=== PATIENT | female | born 1990 | race Caucasian/White ===

== ENCOUNTER 2020-11-27 11:08 | Outpatient (CLI) | payer OTHER | END 2020-11-27 11:09 | disposition critical access hospital (66) | LOC: EMS 11:08 | PROVIDERS: ATTEND Emergency Medicine | DX: R11.0 Nausea (principal); R42 Dizziness and giddiness; R10.30 Lower abdominal pain, unspecified | CPT/HCPCS: A0425; A0429 ==

== ENCOUNTER 2020-11-27 11:23 | Emergency (ER) | payer BC, OTHER ==
[2020-11-27] MEDS ORDERED: ONDANSETRON 4 MG/2 ML VIAL IVP STA (12:09)
[2020-11-27] MEDS ORDERED: LIDOCAINE VISCOUS 2% 15 ML UDC MM STA (12:09)
[2020-11-27] MEDS ORDERED: SODIUM CHLORIDE 0.9% 1,000 ML IV STA (12:09)
[2020-11-27] MEDS ORDERED: MAG HYDROX/AL HYDROX/SIMETH 30 ML UDC PO STA (12:09)
--- NOTE | 2020-11-27 12:10 | ED Physician Documentation ---
PD HPI ABD PAIN - Stated complaint Stated Complaint: N/V - Chief complaint Chief Complaint: Abd Pain - History obtained from History obtained from: Patient - Additional information Additional information: 30-year-old woman with history of cholecystectomy had some alcoholic beverages last night. Awoke this morning feeling nauseous and vomiting and dry heaving thinking she was just hung over but around 8 AM developed left upper quadrant pain and feeling quite weak. There is also some diarrhea with this. No fevers but she did have chills. No blood from either end. No possibility of . Review of Systems Ten Systems: 10 systems reviewed and negative Constitutional: reports: Chills, Fatigue, Sweats Nose: denies: Rhinorrhea / runny nose Throat: denies: Sore throat Cardiac: denies: Chest pain / pressure, Palpitations PD PAST MEDICAL HISTORY - Present Medications Home Medications: Ambulatory Orders Medication Instructions Recorded Confirmed Famotidine [Pepcid] 20 mg PO BID #30 tablet 11/27/20 HYDROcod/ACETAM 5/325 [[place] 5/325] 1 - 2 tab PO Q6H PRN #7 tablet 11/27/20 Ondansetron Odt [Zofran] 4 mg TL Q6H PRN #10 tablet 11/27/20 - Allergies Allergies/Adverse Reactions: Allergies Allergy/AdvReac Type Severity Reaction Status Date / Time sumatriptan Allergy Unknown Verified 11/27/20 11:51 PD ED PE NORMAL - Vitals Vital signs reviewed: Yes - General General: Alert and oriented X 3, No acute distress - Neck Neck: Supple, no meningeal sign, No bony TTP - Cardiac Cardiac: RRR, No murmur - Respiratory Respiratory: No respiratory distress, Clear bilaterally - Abdomen Abdomen: Normal bowel sounds, Soft, Non tender - Back Back: No CVA TTP, No spinal TTP - Derm Derm: Normal color, Warm and dry - Neuro Neuro: Alert and oriented X 3, Normal speech Results - Vitals Vitals: Vital Signs - 24 hr 11/27/20 11/27/20 11:25 11:50 Temperature 36.6 C 36.6 C Heart Rate 87 69 Respiratory 16 17 Rate Blood Pressure 106/73 106/73 O2 Saturation 100 99 Oxygen O2 Source Room air - Labs Labs: Laboratory Tests 11/27/20 11/27/20 11:45 11:45 WBC 13.1 H RBC 4.95 Hgb 14.9 Hct 42.8 MCV 86.5 MCH 30.1 MCHC 34.8 RDW 12.2 Plt Count 301 MPV 9.0 Neut # (Auto) 11.3 H Lymph # (Auto) 1.3 L [place] # (Auto) 0.3 Eos # (Auto) 0.0 Baso # (Auto) 0.0 Absolute Nucleated RBC 0.00 Nucleated RBC % 0.0 Sodium 140 Potassium 3.7 Chloride 105 Carbon Dioxide 20 L Anion Gap 15.0 H BUN 14 Creatinine 0.7 Estimated GFR (MDRD) 98 Glucose 102 H Calcium 9.6 Total Bilirubin 0.8 AST 18 ALT 14 Alkaline Phosphatase 45 Total Protein 7.5 Albumin 4.4 Globulin 3.1 Albumin/Globulin Ratio 1.4 Lipase 19 L PD MEDICAL DECISION MAKING - ED course ED course: 30-year-old woman presents with nausea diarrhea and left upper quadrant pain after a night of drinking. Differential diagnosis includes pancreatitis, gastritis, at all. She was feeling much better after some Zofran and a GI cocktail I think clinching the diagnosis of gastritis. No biochemical evidence of pancreatitis. Departure - Departure Disposition: 01 Home, Self Care Clinical Impression: Gastritis Qualifiers: Gastritis type: alcoholic Chronicity: acute Gastritis bleeding: without bleeding Qualified Code(s): K29.20 - Alcoholic gastritis without bleeding Condition: Good Record reviewed to determine appropriate education?: Yes Instructions: ED Gastritis Prescriptions: HYDROcod/ACETAM 5/325 [[place] 5/325] 1 - 2 tab PO Q6H PRN #7 tablet PRN Reason: Pain Famotidine [Pepcid] 20 mg PO BID #30 tablet Ondansetron Odt [Zofran] 4 mg TL Q6H PRN #10 tablet PRN Reason: Nausea / Vomiting Comments: Return if symptoms worsen or change. If symptoms are persistent follow-up with your physician for discussion of referral for upper endoscopy, but as discussed I think this should be gone fairly quickly if you abstain from alcohol.
[2020-11-27 12:14] LABS: BASOPHILS % (AUTO) 0.3 %; EOSINOPHILS % (AUTO) 0.2 %; HCT - HEMATOCRIT 42.8 % (37.0-47.0); HGB - HEMOGLOBIN 14.9 g/dL (12.0-16.0); LYMPHOCYTES # (AUTO) 1.3 10^3/uL (1.5-3.5); LYMPHOCYTES % (AUTO) 10.2 %; MEAN CORPUSCULAR HEMOGLOBIN 30.1 pg (27.0-31.0); MEAN CORPUSCULAR HGB CONC 34.8 g/dL (32.0-36.0); MEAN CORPUSCULAR VOLUME 86.5 fL (81.0-99.0); MONOCYTES # (AUTO) 0.3 10^3/uL (0.0-1.0); MONOCYTES % (AUTO) 2.5 %; NEUTROPHILS # (AUTO) 11.3 10^3/uL (1.5-6.6); NEUTROPHILS % (AUTO) 86.5 %; PLT - PLATELET COUNT 301 10^3/uL (130-450); RED BLOOD COUNT 4.95 10^6/uL (4.20-5.40); RED CELL DISTRIBUTION WIDTH 12.2 % (12.0-15.0); WHITE BLOOD COUNT 13.1 x10^3/uL (4.8-10.8)
[2020-11-27 12:29] LABS: ALBUMIN 4.4 g/dL (3.2-5.5); ALBUMIN/GLOBULIN RATIO 1.4 (1.0-2.2); BILIRUBIN,TOTAL 0.8 mg/dL (0.2-1.0); CALCIUM 9.6 mg/dL (8.5-10.3); CREATININE 0.7 mg/dL (0.4-1.0); POTASSIUM 3.7 mmol/L (3.5-5.0); TOTAL PROTEIN 7.5 g/dL (6.7-8.2)
[2020-11-27] MEDS ORDERED: FAMOTIDINE 20 MG/2 ML VIAL IVP STA (12:50)
[2020-11-27 13:53] VITALS: BP 103/70
== END 2020-11-27 14:07 | disposition home or self-care (01) ==
LOC: EDUNIT# → ED 11:23
DX: K29.20 Alcoholic gastritis without bleeding (principal)
CPT/HCPCS: 36415; 80053; 83690; 85025; 96374; 96375; 99284; A9270

== ENCOUNTER 2020-12-07 09:51 | Emergency (ER) | payer OTHER ==
[2020-12-07] MEDS ORDERED: SODIUM CHLORIDE 0.9% 1,000 ML IV STA (10:19)
[2020-12-07] MEDS ORDERED: MAG HYDROX/AL HYDROX/SIMETH 30 ML UDC PO STA (10:19)
[2020-12-07] MEDS ORDERED: LIDOCAINE VISCOUS 2% 15 ML UDC MM STA (10:19)
--- NOTE | 2020-12-07 10:21 | ED Physician Documentation ---
PD HPI ABD PAIN - Stated complaint Stated Complaint: FEMALE - Chief complaint Chief Complaint: Abd Pain - History obtained from History obtained from: Patient - Additional information Additional information: Seen by me about 10 days ago for epigastric pain after a night of drinking. She did better with a GI cocktail and the work-up was negative. Subsequently had more pain and was seen a few days at urgent care. PPI was stopped and she was started on sucralfate. She did not feel like that was helpful and developed constipation with that. Subsequently had some firm bowel movements which were coated in quite a bit of blood. Then went a few days without a bowel movement. Then last night had a pasty bowel movements again bloody. She develops epigastric pain after eating or drinking. It radiates down and gets a shocklike pain in the suprapubic area right before having a bowel movement. She does have hemorrhoids and those are mildly painful. No more alcohol since that first day and is not on any NSAIDs. Review of Systems Ten Systems: 10 systems reviewed and negative Constitutional: reports: Fatigue Cardiac: denies: Chest pain / pressure, Palpitations Respiratory: denies: Dyspnea, Cough PD PAST MEDICAL HISTORY - Present Medications Home Medications: Ambulatory Orders Medication Instructions Recorded Confirmed Famotidine [Pepcid] 20 mg PO BID #30 tablet 11/27/20 HYDROcod/ACETAM 5/325 [[place] 5/325] 1 - 2 tab PO Q6H PRN #7 tablet 11/27/20 Ondansetron Odt [Zofran] 4 mg TL Q6H PRN #10 tablet 11/27/20 HYDROcod/ACETAM 5/325 [[place] 5/325] 1 - 2 tab PO Q6H PRN #15 tablet 12/07/20 - Allergies Allergies/Adverse Reactions: Allergies Allergy/AdvReac Type Severity Reaction Status Date / Time sumatriptan Allergy Unknown Verified 11/27/20 11:51 PD ED PE NORMAL - Vitals Vital signs reviewed: Yes - General General: Alert and oriented X 3, No acute distress - HEENT HEENT: PERRL, EOMI - Neck Neck: Supple, no meningeal sign, No bony TTP - Cardiac Cardiac: RRR, No murmur - Respiratory Respiratory: No respiratory distress, Clear bilaterally - Abdomen Abdomen: Normal bowel sounds, Soft, Non tender - Rectal Rectal: Other (Some small hemorrhoids without sequela of recent active bleeding. There is some blood in the vault, no appreciable stool. Done torrey Stout RN) - Back Back: No CVA TTP, No spinal TTP - Derm Derm: Normal color, Warm and dry - Extremities Extremities: No edema, No calf tenderness / cord - Neuro Neuro: Alert and oriented X 3, Normal speech Results - Vitals Vitals: Vital Signs - 24 hr 12/07/20 12/07/20 12/07/20 09:56 10:23 10:32 Temperature 36.6 C 36.7 C Heart Rate 64 65 58 L Respiratory 18 18 16 Rate Blood Pressure 112/74 114/74 103/67 O2 Saturation 99 100 100 12/07/20 12/07/20 11:20 12:03 Temperature 36.7 C Heart Rate 68 67 Respiratory 16 18 Rate Blood Pressure 113/75 99/65 O2 Saturation 100 100 Oxygen O2 Source Room air - Labs Labs: Laboratory Tests 12/07/20 12/07/20 12/07/20 10:00 10:20 10:20 WBC 6.1 RBC 4.71 Hgb 14.3 Hct 43.0 MCV 91.3 MCH 30.4 MCHC 33.3 RDW 12.4 Plt Count 238 MPV 9.2 Neut # (Auto) 3.2 Lymph # (Auto) 2.3 [place] # (Auto) 0.4 Eos # (Auto) 0.1 Baso # (Auto) 0.0 Absolute Nucleated RBC 0.00 Nucleated RBC % 0.0 Sodium 138 Potassium 3.7 Chloride 101 Carbon Dioxide 27 Anion Gap 10.0 BUN 13 Creatinine 0.7 Estimated GFR (MDRD) 98 Glucose 93 Calcium 9.3 Total Bilirubin 0.8 AST 19 ALT 18 Alkaline Phosphatase 42 Total Protein 7.5 Albumin 4.3 Globulin 3.2 Albumin/Globulin Ratio 1.3 Lipase 21 L Urine Color YELLOW Urine Clarity CLEAR Urine pH 6.5 Ur Specific [place] 1.025 Urine Protein NEGATIVE Urine Glucose (UA) NEGATIVE Urine Ketones NEGATIVE Urine Occult Blood NEGATIVE Urine Nitrite NEGATIVE Urine Bilirubin NEGATIVE Urine Urobilinogen 1 (NORMAL) Ur Leukocyte Esterase NEGATIVE Ur Microscopic Review NOT INDICATED Urine Culture Comments NOT INDICATED Urine HCG, Qual NEGATIVE Blood Type Blood Type Recheck Antibody Screen 12/07/20 12/07/20 10:20 10:20 WBC RBC Hgb Hct MCV MCH MCHC RDW Plt Count MPV Neut # (Auto) Lymph # (Auto) [place] # (Auto) Eos # (Auto) Baso # (Auto) Absolute Nucleated RBC Nucleated RBC % Sodium Potassium Chloride Carbon Dioxide Anion Gap BUN Creatinine Estimated GFR (MDRD) Glucose Calcium Total Bilirubin AST ALT Alkaline Phosphatase Total Protein Albumin Globulin Albumin/Globulin Ratio Lipase Urine Color Urine Clarity Urine pH Ur Specific [place] Urine Protein Urine Glucose (UA) Urine Ketones Urine Occult Blood Urine Nitrite Urine Bilirubin Urine Urobilinogen Ur Leukocyte Esterase Ur Microscopic Review Urine Culture Comments Urine HCG, Qual Blood Type O POSITIVE Blood Type Recheck O POSITIVE Antibody Screen NEGATIVE PD MEDICAL DECISION MAKING - ED course ED course: 30-year-old woman presents with abdominal and pelvic pain associated with hematochezia. CT imaging was negative except for right ovarian cyst. Blood work is basically unchanged without a significant H&H drop since her last visit. Discussed need for follow-up especially if symptoms are persistent for consideration of upper and lower endoscopy. Departure - Departure Disposition: Home, Self Care Clinical Impression: Hematochezia Abdominal pain Qualifiers: Abdominal location: generalized Qualified Code(s): R10.84 - Generalized abdominal pain Condition: Good Record reviewed to determine appropriate education?: Yes Instructions: ED Hematochezia Stable Follow-Up: Vicente Palma MD [Provider Admit Priv/Credential] - Prescriptions: HYDROcod/ACETAM 5/325 [[place] 5/325] 1 - 2 tab PO Q6H PRN #15 tablet PRN Reason: Pain Comments: Restart the omeprazole. You can take the pain medicine when it is bad. Tylenol when it is mild. Return for new or worsening symptoms. Otherwise follow-up with the surgeon for consideration for upper and/or lower endoscopies if symptoms are persistent. Discharge Date/Time: 12/07/20 12:18
[2020-12-07 10:28] LABS: BILIRUBIN,URINE NEGATIVE (NEGATIVE); GLUCOSE, URINE (UA) NEGATIVE (NEGATIVE); KETONES,URINE (UA) NEGATIVE (NEGATIVE); LEUKOCYTE ESTERASE, URINE NEGATIVE (NEGATIVE); NITRITE,URINE NEGATIVE (NEGATIVE); OCCULT BLOOD,URINE NEGATIVE (NEGATIVE); PH,URINE 6.5 PH (5.0-7.5); PROTEIN,URINE NEGATIVE (NEGATIVE); UROBILINOGEN,URINE 1 (NORMAL) E.U./dL (NORMAL)
[2020-12-07 10:31] LABS: CLARITY,URINE CLEAR (CLEAR); HCG UR QUAL NEGATIVE
[2020-12-07 10:34] LABS: BASOPHILS % (AUTO) 0.5 %; EOSINOPHILS # (AUTO) 0.1 10^3/uL (0.0-0.7); EOSINOPHILS % (AUTO) 1.8 %; HGB - HEMOGLOBIN 14.3 g/dL (12.0-16.0); LYMPHOCYTES # (AUTO) 2.3 10^3/uL (1.5-3.5); LYMPHOCYTES % (AUTO) 38.4 %; MEAN CORPUSCULAR HEMOGLOBIN 30.4 pg (27.0-31.0); MEAN CORPUSCULAR HGB CONC 33.3 g/dL (32.0-36.0); MEAN CORPUSCULAR VOLUME 91.3 fL (81.0-99.0); MEAN PLATELET VOLUME 9.2 fL (7.9-10.8); MONOCYTES # (AUTO) 0.4 10^3/uL (0.0-1.0); MONOCYTES % (AUTO) 6.7 %; NEUTROPHILS # (AUTO) 3.2 10^3/uL (1.5-6.6); NEUTROPHILS % (AUTO) 52.3 %; PLT - PLATELET COUNT 238 10^3/uL (130-450); RED BLOOD COUNT 4.71 10^6/uL (4.20-5.40); RED CELL DISTRIBUTION WIDTH 12.4 % (12.0-15.0); WHITE BLOOD COUNT 6.1 x10^3/uL (4.8-10.8)
[2020-12-07] MEDS ORDERED: IOVERSOL 320 100 ML VIAL IVP ONE ×2 (10:35→12:19)
[2020-12-07 10:46] LABS: ALBUMIN 4.3 g/dL (3.2-5.5); ALBUMIN/GLOBULIN RATIO 1.3 (1.0-2.2); BILIRUBIN,TOTAL 0.8 mg/dL (0.2-1.0); CALCIUM 9.3 mg/dL (8.5-10.3); CREATININE 0.7 mg/dL (0.4-1.0); POTASSIUM 3.7 mmol/L (3.5-5.0); TOTAL PROTEIN 7.5 g/dL (6.7-8.2)
--- NOTE | 2020-12-07 11:47 | CT Report ---
PROCEDURE: Abdomen/Pelvis W INDICATIONS: IV only, abd pain CONTRAST: IV CONTRAST: Optiray 320 ml: 100 PO CONTRAST: *NO PO CONTRAST TECHNIQUE: After the administration of IV contrast, 5 mm thick sections acquired from the diaphragms to the symp hysis. 5 mm thick coronal and sagittal reformats were acquired. For radiation dose reduction, the f ollowing was used: automated exposure control, adjustment of mA and/or kV according to patient size. COMPARISON: None. FINDINGS: Image quality: Excellent. ABDOMEN: Lung bases: Lung bases are clear. Heart size is normal. Solid organs: Liver is prominent with mild steatosis. The spleen is normal in size and enhancement. Gallbladder has been removed Biliary system is non dilated. Pancreas enhances normally. No adrena l nodules. Kidneys demonstrate normal size and enhancement, without hydronephrosis. Peritoneum and bowel: Bowel loops demonstrate normal wall thickness and caliber. No free fluid or a ir. Colonic stool. Gastric bypass changes are noted. Nodes and vessels: No retroperitoneal or mesenteric adenopathy by size criteria. Aorta and inferior vena cava are normal in size. Miscellaneous: No ventral hernias. PELVIS: Genitourinary: Bladder wall thickness is normal. Right ovarian cyst is present measuring 23 mm. Miscellaneous: No inguinal hernias or adenopathy. Bones: No suspicious bony lesions. No vertebral body compression fractures. IMPRESSION: 1. No visualized bowel obstruction. 2. Right ovarian cyst. Reviewed by: Yolanda Steen MD on 12/07/2020 11:45 AM PDT Approved by: Yolanda Steen MD on 12/07/2020 11:45 AM PDT Station ID: [id number]
[2020-12-07 12:04] VITALS: BP 99/65
== END 2020-12-07 12:18 | disposition home or self-care (01) ==
LOC: ED 09:51
DX: K92.1 Melena (principal); N83.201 Unspecified ovarian cyst, right side
CPT/HCPCS: 36415; 74177; 80053; 81003; 81025; 83690; 85025; 86850; 86900; 86901; 99284; A9270; Q9967; 81001; 87086

== ENCOUNTER 2021-07-28 08:00 | Outpatient (CLI) | payer OTHER ==
[2021-07-28 12:06] LABS: HCT - HEMATOCRIT 41.9 % (37.0-47.0); HGB - HEMOGLOBIN 13.7 g/dL (12.0-16.0); MEAN CORPUSCULAR HEMOGLOBIN 29.9 pg (27.0-31.0); MEAN CORPUSCULAR HGB CONC 32.7 g/dL (32.0-36.0); MEAN CORPUSCULAR VOLUME 91.5 fL (81.0-99.0); MEAN PLATELET VOLUME 9.3 fL (7.9-10.8); RED BLOOD COUNT 4.58 10^6/uL (4.20-5.40); RED CELL DISTRIBUTION WIDTH 12.2 % (12.0-15.0); WHITE BLOOD COUNT 5.9 x10^3/uL (4.8-10.8)
[2021-07-28 16:22] LABS: RHEUMATOID FACTOR NEGATIVE (Negative)
[2021-07-30 11:41] LABS: ANA SCREEN NEGATIVE (NEGATIVE)
== END 2021-07-28 23:59 | disposition home or self-care (01) ==
LOC: LAB.WCP 08:00
PROVIDERS: ATTEND Physician Assistant Medical
DX: M25.50 Pain in unspecified joint (principal)
CPT/HCPCS: 36415; 85027; 85651; 86038; 86140; 86225; 86430

== ENCOUNTER 2021-07-29 15:51 | Outpatient (CLI) | payer OTHER ==
--- NOTE | 2021-07-29 22:28 | XRAY Report ---
PROCEDURE: Hips 3-4V BILAT INDICATIONS: BILATERAL HIP PAIN TECHNIQUE: Single view the pelvis and additional view of each hip was obtained COMPARISON: None FINDINGS: Bones: No fractures or dislocations. No suspicious bony lesions. The visualized pelvic ring appear s intact. Soft tissues: No suspicious soft tissue calcifications or masses. IMPRESSION: Normal bilateral hip radiographs Reviewed by: Isacc Reaves MD on 07/29/2021 9:27 PM AKDT Approved by: Isacc Reaves MD on 07/29/2021 9:27 PM AKDT Station ID: [id number]
--- NOTE | 2021-07-29 22:42 | XRAY Report ---
PROCEDURE: Knee 3 View BILAT INDICATIONS: CHRONIC KNEE PAIN TECHNIQUE: 3 views of the bilateral knee(s) were acquired. COMPARISON: None. FINDINGS: Bones: No fractures or dislocations. No suspicious bony lesions. Mild medial compartment joint spac e narrowing noted. Normal bone mineralization present. Soft tissues: No joint effusion. No suspicious soft tissue calcifications. IMPRESSION: Mild bilateral medial compartment joint space narrowing Reviewed by: Isacc Reaves MD on 07/29/2021 9:41 PM [email or web address] Approved by: Isacc Reaves MD on 07/29/2021 9:41 PM AKDT Station ID: [id number]
== END 2021-07-29 15:52 | disposition home or self-care (01) ==
LOC: DI.N 15:51
PROVIDERS: ATTEND Physician Assistant Medical
DX: M25.551 Pain in right hip (principal); M17.0 Bilateral primary osteoarthritis of knee

== ENCOUNTER 2021-10-24 06:54 | Emergency (ER) | payer OTHER ==
--- NOTE | 2021-10-24 07:37 | ED Physician Documentation ---
History of Present Illness - Stated complaint Stated Complaint: CHEST PAIN - Chief complaint Chief Complaint: Cardiac - History obtained from History obtained from: Patient - Additonal information Additional information: And comes to the emergency department with chief complaint of episodes of heart racing. Patient states that she feels that most often when she stands up and that she sometimes gets a sense of slight chest discomfort and nausea. She states that the episodes will last until she sits down. Patient states she has a Fitbit and the highest heart rate she is recorded is 125, but usually, the heart rate is 115 or less. Patient states that she starts to feel the discomfort when her heart rate gets above 90. No other complaints at this time. She states she is otherwise healthy. She has not had any vomiting or diarrhea. No fevers or chills. No shortness of breath. No swelling in her legs. The patient has no known history of diabetes, hypertension, or rhythm abnormalities. No thyroid disorders. The patient states the episodes have been going on on and off for the last 3 days, though she has had occasional episodes before, Which prompted her to ask her doctor 2 weeks ago to refer her to cardiology. The patient states that she is scheduled to see cardiology and have an event monitor placed. She is asymptomatic at this moment. Review of Systems Ten Systems: 10 systems reviewed and negative Constitutional: reports: Reviewed and negative Eyes: reports: Reviewed and negative Ears: reports: Reviewed and negative Nose: reports: Reviewed and negative Throat: reports: Reviewed and negative Cardiac: reports: Chest pain / pressure, Palpitations Respiratory: reports: Reviewed and negative GI: reports: Reviewed and negative : reports: Reviewed and negative Skin: reports: Reviewed and negative Musculoskeletal: reports: Reviewed and negative Neurologic: reports: Reviewed and negative Psychiatric: reports: Reviewed and negative Endocrine: reports: Reviewed and negative Immunocompromised: reports: Reviewed and negative PD PAST MEDICAL HISTORY - Past Surgical History Past Surgical History: Yes General: Cholecystectomy - Present Medications Home Medications: Ambulatory Orders Medication Instructions Recorded Confirmed No Known Home Medications 10/24/21 10/24/21 - Allergies Allergies/Adverse Reactions: Allergies Allergy/AdvReac Type Severity Reaction Status Date / Time sumatriptan Allergy Unknown Verified 10/24/21 07:20 - Social History Does the pt smoke?: Yes Smoking Status: Current every day smoker Does the pt drink ETOH?: Yes Does the pt have substance abuse?: Yes - Immunizations Immunizations are current?: Yes - POLST Patient has POLST: No PD ED PE NORMAL - Vitals Vital signs reviewed: Yes - General General: Alert and oriented X 3, No acute distress, Well developed/nourished - HEENT HEENT: Atraumatic, PERRL, EOMI, Moist mucous membranes - Cardiac Cardiac: RRR, No murmur, Strong equal pulses - Respiratory Respiratory: No respiratory distress, Clear bilaterally - Abdomen Abdomen: Soft, Non tender, Non distended - Derm Derm: Normal color, Warm and dry, No rash - Extremities Extremities: No deformity, No edema, No calf tenderness / cord - Neuro Neuro: Alert and oriented X 3, hog raiser 2-12 intact, Normal speech, Other (Grossly intact) - Psych Psych: Normal mood, Normal affect Results - Vitals Vitals: Vital Signs - 24 hr 10/24/21 10/24/21 10/24/21 07:00 07:30 08:00 Temperature 36.8 C Heart Rate 60 63 62 Respiratory 10 L 10 L 12 Rate Blood Pressure 109/74 104/67 111/68 O2 Saturation 100 100 100 10/24/21 08:30 Temperature Heart Rate 64 Respiratory 12 Rate Blood Pressure 109/66 O2 Saturation 100 Oxygen O2 Source Room air - EKG (time done) 0708 Rate: Rate (enter#) (68) Rhythm: NSR [place]: Normal Intervals: Normal MT QRS: Normal Ischemia: Normal ST segments. No: T wave inversion Compare to prior EKG: Old EKG unavailable Computer interpretation: Agree with computer - Labs Labs: Laboratory Tests 10/24/21 10/24/21 10/24/21 07:40 07:40 07:40 WBC 5.2 RBC 4.37 Hgb 13.2 Hct 38.4 MCV 87.9 MCH 30.2 MCHC 34.4 RDW 12.0 Plt Count 211 MPV 8.8 Neut # (Auto) 2.7 Lymph # (Auto) 2.1 [place] # (Auto) 0.3 Eos # (Auto) 0.1 Baso # (Auto) 0.0 Absolute Nucleated RBC 0.00 Nucleated RBC % 0.0 Sodium 137 Potassium 3.9 Chloride 103 Carbon Dioxide 24 Anion Gap 10.0 BUN 16 Creatinine 0.7 Estimated GFR (MDRD) 98 Glucose 97 Calcium 8.9 Total Bilirubin 1.1 H AST 25 ALT 26 Alkaline Phosphatase 36 L Total Protein 6.8 Albumin 3.9 Globulin 2.9 Albumin/Globulin Ratio 1.3 Lipase 21 L TSH 0.68 PD MEDICAL DECISION MAKING - ED course Complexity details: reviewed results, re-evaluated patient, considered differential, d/w patient ED course: The patient was well-appearing in the emergency department, with a normal sinus rhythm on the monitor and a normal blood pressure. Her EKG was completely normal. She was also worked up with laboratory studies and given a liter of IV fluid. The patient's laboratory studies were unremarkable. She did not have any episodes of tachycardia in the emergency department, and given all of this, I felt she was stable for discharge home. The patient has follow-up set up with cardiology and also has a primary care physician with whom she is well established. We have discussed the usual indications for return. Departure - Departure Disposition: 01 Home, Self Care Clinical Impression: Palpitations with regular cardiac rhythm Condition: Stable Instructions: ED Chest Pain Atypical Unkn Cause, ED Palpitations Comments: All of your labs look great today. You have no electrolyte abnormalities, and your thyroid function is normal. You are not anemic. It is not clear exactly what has caused you to have the episodes of heart racing. Sometimes this can be an electrical problem with your heart, meaning that There is some intermittent dysfunction of some of the nerve roots of the heart itself that control heart rate and rhythm. Sometimes episodes of heart racing can be related to anxiety or panic attacks. The use of stimulants such as caffeine, energy drinks, or decongestants can also cause you to have episodes of heart racing. At this point in time, it is important that you follow-up with your primary care physician and with cardiology, as you are planning to do. If you develop a heart rate that does not go down, despite resting, then you should seek medical reevaluation. Also, if you develop severe chest pain and shortness of breath, you should be reevaluated immediately.
[2021-10-24] MEDS: SODIUM CHLORIDE 0.9% 1,000 ML IV STA (07:47)
[2021-10-24 07:56] LABS: BASOPHILS % (AUTO) 0.4 %; EOSINOPHILS # (AUTO) 0.1 10^3/uL (0.0-0.7); EOSINOPHILS % (AUTO) 1.5 %; HCT - HEMATOCRIT 38.4 % (37.0-47.0); HGB - HEMOGLOBIN 13.2 g/dL (12.0-16.0); LYMPHOCYTES # (AUTO) 2.1 10^3/uL (1.5-3.5); LYMPHOCYTES % (AUTO) 40.1 %; MEAN CORPUSCULAR HEMOGLOBIN 30.2 pg (27.0-31.0); MEAN CORPUSCULAR HGB CONC 34.4 g/dL (32.0-36.0); MEAN CORPUSCULAR VOLUME 87.9 fL (81.0-99.0); MEAN PLATELET VOLUME 8.8 fL (7.9-10.8); MONOCYTES # (AUTO) 0.3 10^3/uL (0.0-1.0); MONOCYTES % (AUTO) 6.4 %; NEUTROPHILS # (AUTO) 2.7 10^3/uL (1.5-6.6); NEUTROPHILS % (AUTO) 51.4 %; PLT - PLATELET COUNT 211 10^3/uL (130-450); RED BLOOD COUNT 4.37 10^6/uL (4.20-5.40); WHITE BLOOD COUNT 5.2 x10^3/uL (4.8-10.8)
[2021-10-24 08:14] LABS: ALBUMIN 3.9 g/dL (3.2-5.5); ALBUMIN/GLOBULIN RATIO 1.3 (1.0-2.2); BILIRUBIN,TOTAL 1.1 mg/dL (0.2-1.0); CALCIUM 8.9 mg/dL (8.5-10.3); CREATININE 0.7 mg/dL (0.4-1.0); POTASSIUM 3.9 mmol/L (3.5-5.0); TOTAL PROTEIN 6.8 g/dL (6.7-8.2)
[2021-10-24 08:32] VITALS: BP 109/66
== END 2021-10-24 08:48 | disposition home or self-care (01) ==
LOC: ED 06:54
DX: R00.2 Palpitations (principal); R07.89 Other chest pain; F17.200 Nicotine dependence, unspecified, uncomplicated
CPT/HCPCS: 36415; 80053; 83690; 84443; 85025; 93005; 99283; 99284

== ENCOUNTER 2022-02-15 18:46 | Outpatient (CLI) | payer OTHER | END 2022-02-15 18:47 | disposition critical access hospital (66) | LOC: EMS 18:46 | DX: R51.9 Headache, unspecified (principal); R42 Dizziness and giddiness; R11.2 Nausea with vomiting, unspecified | CPT/HCPCS: A0425; A0427 ==

== ENCOUNTER 2022-02-15 19:01 | Emergency (ER) | payer OTHER ==
[2022-02-15] MEDS ORDERED: SODIUM CHLORIDE 0.9% 1,000 ML IV STA (19:10)
[2022-02-15] MEDS ORDERED: PROCHLORPERAZINE 10 MG/2 ML VIAL IVP STA (19:11)
[2022-02-15] MEDS ORDERED: KETOROLAC 15 MG/ML VIAL IVP STA (19:11)
--- NOTE | 2022-02-15 19:17 | ED Physician Documentation ---
PD HPI HEADACHE - Stated complaint Stated Complaint: HEADACHE/DIZZY - Chief complaint Chief Complaint: Neuro - History obtained from History obtained from: Patient, EMS - Additional information Additional information: 31yo female with hx Insomnia and depression. Took trazodone for only the second time last night to help her sleep. The last time was about a month and a half ago. She woke at 5 AM with sudden onset headache. The headache is migratory. If she rolls over on her right side, the headache is on the right. Conversely if she rolls over on the left side the headache is on the left. She has a history of migraines, but those are usually behind the left eye and this is different. She is light sensitive. She has been nauseous but received Zofran in route per EMS which improved that. She tried some Tylenol earlier in the day which was ineffective. No other therapeutics. No neck stiffness or fevers. Review of Systems Constitutional: denies: Fever, Chills PD PAST MEDICAL HISTORY - Past Medical History Past Medical History: Yes Neuro: Migraines Psych: Anxiety - Past Surgical History Past Surgical History: Yes General: Cholecystectomy - Present Medications Home Medications: Ambulatory Orders Medication Instructions Recorded Confirmed PARoxetine HCl [Paxil] 30 mg PO DAILY 02/15/22 02/15/22 Propranolol [Inderal] 20 mg PO BID 02/15/22 02/15/22 traZODone [Desyrel] 50 mg PO PRN PRN 02/15/22 02/15/22 - Allergies Allergies/Adverse Reactions: Allergies Allergy/AdvReac Type Severity Reaction Status Date / Time sumatriptan Allergy Intermediate Unknown Verified 02/15/22 19:40 - Social History Does the pt smoke?: Yes Smoking Status: Current every day smoker Does the pt drink ETOH?: Yes Does the pt have substance abuse?: Yes - Immunizations Immunizations are current?: Yes - POLST Patient has POLST: No PD ED PE NORMAL - Vitals Vital signs reviewed: Yes - General General: Alert and oriented X 3, No acute distress - HEENT HEENT: PERRL, EOMI - Neck Neck: Supple, no meningeal sign, No bony TTP - Neuro Neuro: Alert and oriented X 3, veterinary assistant 2-12 intact, No motor deficit, No sensory deficit, Normal speech Eye Opening: Spontaneous Motor: Obeys Commands Verbal: Oriented GCS Score: 15 - Psych Psych: Normal mood, Normal affect Results - Vitals Vitals: Vital Signs - 24 hr 02/15/22 02/15/22 19:06 20:07 Temperature 37.2 C Heart Rate 77 92 Respiratory 18 18 Rate Blood Pressure 114/74 112/75 O2 Saturation 97 97 Oxygen O2 Source Room air PD MEDICAL DECISION MAKING - ED course ED course: 31-year-old woman with significant headache awaking her from sleep. She thinks it may be related to trazodone as she only took the second dose of her last n ight before going to bed. After the administration of Toradol and Compazine her headache was significantly improved, only a 3 and she was comfortable and requesting discharge. Departure - Departure Disposition: 01 Home, Self Care Clinical Impression: Headache Qualifiers: Headache type: unspecified Headache chronicity pattern: acute headache Intractability: not intractable Qualified Code(s): R51.9 - Headache, unspecified Condition: Good Record reviewed to determine appropriate education?: Yes Instructions: ED Cephalgia Unspecified Comments: Return if you worsen, talk with your doctor, next available appointment, call tomorrow. I would not take trazodone again until you discuss with them. I am not convinced that the trazodone caused the headache, but given the timing it does seem suspicious. Discharge Date/Time: 02/15/22 20:14
--- NOTE | 2022-02-15 19:55 | CT Report ---
PROCEDURE: HEAD WO INDICATIONS: whol TECHNIQUE: Noncontrast 4.5 mm thick angled axial sections acquired from the foramen magnum to the vertex. For r adiation dose reduction, the following was used: automated exposure control, adjustment of mA and/or kV according to patient size. COMPARISON: None. FINDINGS: Image quality: Excellent. CSF spaces: Basal cisterns are patent. No extra-axial fluid collections. Ventricles are normal in size and shape. Brain: No midline shift. No intracranial masses or hemorrhage. [place]par[place]-white matter interface is norm al. Skull and face: Calvarium and visualized facial bones are intact, without suspicious lesions. Sinuses: Visualized sinuses and mastoids are clear. IMPRESSION: 1. No acute intracranial process. Reviewed by: Yolanda Steen MD on 02/15/2022 7:54 PM PDT Approved by: Yolanda Steen MD on 02/15/2022 7:54 PM PDT Station ID: [id number]
[2022-02-15 20:12] VITALS: BP 112/75
== END 2022-02-15 20:14 | disposition home or self-care (01) ==
LOC: EDSEX → EDUNIT# → ED 19:01
DX: R51.9 Headache, unspecified (principal); F17.200 Nicotine dependence, unspecified, uncomplicated
CPT/HCPCS: 96374; 96375; 99282

== ENCOUNTER 2024-10-14 13:16 | Observation (INO) ==
--- NOTE | 2024-10-14 14:00 | ED Physician Documentation ---
History of Present Illness Stated complaint Stated Complaint: STOMACH/BACK PX Chief complaint Chief Complaint: Abd Pain History obtained from History obtained from: Patient History of Present Illness Timing: Prior to arrival Additonal information Additional information: Patient is A 34-year-old female who was seen here yesterday for similar symptoms of upper abdominal pain radiating to her flank. She notes multiple episodes of nausea and vomiting. Patient at the time was found to have mild pancreatitis and was given [place] and nausea medications. Patient felt these did not help her pain last dose of [place] was around 1 AM last night. She notes a hot and cold flashes with her symptoms with persistent nausea symptoms but no persistent emesis. She has been unable to eat and drink and is holding her side in pain due to persistent symptoms. She has a history of choleycystectomy about 4 years ago and notes similar symptoms at this time as then when she had cholecystitis. Meds/Allgy Home Medications Ambulatory Orders Medication Instructions Recorded Confirmed propranolol 10 mg tablet 20 mg PO BID 02/15/22 10/14/24 trazodone 50 mg tablet 50 mg PO PRN PRN Pain 02/15/22 10/14/24 acetaminophen 500 mg capsule 500 mg PO Q4H PRN fever or pain 10/13/24 10/14/24 ondansetron 4 mg disintegrating 4 mg PO Q8H PRN nausea and 10/13/24 10/14/24 tablet vomiting #30 tabs oxycodone-acetaminophen 5 mg-325 1 tab PO TID PRN pain #10 tabs 10/13/24 10/14/24 mg tablet Allergies Allergies Allergy/AdvReac Type Severity Reaction Status Date / Time sumatriptan Allergy Intermediate Unknown Verified 10/14/24 13:28 [facility] Social History Social History Smoking Status: Current every day smoker Do you vape?: No Relationship: Do you feel safe in your home environment?: Yes Suffered physical, verbal, emotional, or financial abuse?: No History of Abuse: No Frequency: Occasional Are you sexually active?: No POLST Patient has POLST: No Exam Constitutional normal general appearance HENMT normocephalic and head/scalp atraumatic Eyes PERRL and EOMs intact bilaterally Neck/C-Spine visual inspection normal Lymph no lymphadenopathy noted Chest inspection of chest normal Respiratory breath sounds equal bilaterally, normal respiratory effort and clear to auscultation bilaterally Cardiovascular normal heart rate noted Gastrointestinal Reproducible epigastric tenderness and right flank tenderness on examination. No generalized guarding appreciated and abdomen is soft on palpation mild distention appreciated but no palpable mass or ascites appreciated. Genitourinary Right flank tenderness on exam Back/Pelvis spine normal to inspection Extremities normal to inspection Skin skin color normal Results Vitals Vitals: Vital Signs - 24 hr 10/13/24 23:58 10/14/24 13:28 10/14/24 14:22 Temperature 36.0 C L Temperature Source Temporal Artery Scan Pulse Rate 80 Respiratory Rate 20 Blood Pressure 130/80 O2 Saturation 98 O2 Source Room air Room air Pain Intensity 0 8 8 10/14/24 15:00 10/14/24 15:21 Temperature Temperature Source Pulse Rate Respiratory Rate Blood Pressure O2 Saturation O2 Source Pain Intensity 8 8 Oxygen O2 Source Room air Labs Labs: Laboratory Tests 10/14/24 10/14/24 14:00 14:10 WBC 18.3 H RBC 5.03 Hgb 13.9 Hct 42.3 MCV 84.1 MCH 27.6 MCHC 32.9 RDW 13.0 Plt Count 330 MPV 9.1 Neut # (Auto) 14.9 H Lymph # (Auto) 1.9 [place] # (Auto) 1.2 H Eos # (Auto) 0.2 Baso # (Auto) 0.0 Absolute Nucleated RBC 0.00 Nucleated RBC % 0.0 Sodium 135 Potassium 3.6 Chloride 102 Carbon Dioxide 23 Anion Gap 10.0 BUN 17 Creatinine 0.8 Estimated GFR (MDRD) 82 L Glucose 116 H Calcium 9.9 Total Bilirubin 0.6 AST 12 ALT 11 Alkaline Phosphatase 62 Total Protein 8.2 Albumin 4.7 Globulin 3.5 Albumin/Globulin Ratio 1.3 Triglycerides 71 Lipase 76 Urine Color BROWN Urine Clarity CLOUDY Urine pH 6.0 Ur Specific [place] >=1.030 H Urine Protein 100 H Urine Glucose (UA) NEGATIVE Urine Ketones >=80 H Urine Occult Blood LARGE H Urine Nitrite NEGATIVE Urine Bilirubin MODERATE H Urine Urobilinogen 1 (NORMAL) Ur Leukocyte Esterase NEGATIVE Urine RBC TNTC H Urine WBC 6-10 H Ur Squamous Epith Cells FEW Squamous Urine Bacteria Few Ur Microscopic Review INDICATED Urine Culture Comments NOT INDICATED PD Medical Decision Making ED course Complexity details: reviewed old records and reviewed results ED course: Patient 34-year-old female presenting here to the emergency department after being seen yesterday and being diagnosed with mild pancreatitis. She was told if her pain was uncontrolled or she has persistent symptoms she needs to return to the emergency department.Patient symptoms worsened over the night no relief with 1 dose of Percocet and 2 doses of Tylenol she has been trying Zofran as well with no relief. She has not been able to eat or drink due to persistent symptoms. She had a history of mild pancreatitis about 4 years ago when she had a history of cholecystitis. She denies any fevers but has been having hot and cold flashes with her symptoms Labs here in the emergency department did show worsening leukocytosis but no elevation in lipase actually appeared to have decreased with no changes in LFTs or bilirubin. Urine continues to show 6-10 leukocytes with large amount of bl ood in the urine consistent with possibly pyelonephritis versus cystitis causing patient's symptoms. Given CT scan findings yesterday did show findings consistent with pancreatitis and with urine showing concerning findings for UTI will cover patient for both pain under control with Dilaudid and nausea medications here in the emergency department. I did discuss case with on-call hospitalist who is agreeable to admitting patient this evening. We did discuss possibly obtaining a repeat CT scan but holding off on this time given ultrasound and CT with just performed yesterday with no significant changes in laboratory findings and symptoms on physical exam most consistent with pyelonephritis. Patient agreeable with this plan at this time. Discharge Plan Discharge Patient Disposition: 66 [facility] DC/Xfer Condition: Stable Clinical Impression: Pancreatitis, Pyelonephritis, Nausea & vomiting, Acute epigastric pain, Acute right flank pain
[2024-10-14 14:15] LABS: BASOPHILS % (AUTO) 0.2 %; EOSINOPHILS # (AUTO) 0.2 10^3/uL (0.0-0.7); HCT - HEMATOCRIT 42.3 % (37.0-47.0); HGB - HEMOGLOBIN 13.9 g/dL (12.0-16.0); LYMPHOCYTES # (AUTO) 1.9 10^3/uL (1.5-3.5); LYMPHOCYTES % (AUTO) 10.5 %; MEAN CORPUSCULAR HEMOGLOBIN 27.6 pg (27.0-31.0); MEAN CORPUSCULAR HGB CONC 32.9 g/dL (32.0-36.0); MEAN CORPUSCULAR VOLUME 84.1 fL (81.0-99.0); MEAN PLATELET VOLUME 9.1 fL (7.9-10.8); MONOCYTES # (AUTO) 1.2 10^3/uL (0.0-1.0); MONOCYTES % (AUTO) 6.8 %; NEUTROPHILS # (AUTO) 14.9 10^3/uL (1.5-6.6); NEUTROPHILS % (AUTO) 81.1 %; PLT - PLATELET COUNT 330 10^3/uL (130-450); RED BLOOD COUNT 5.03 10^6/uL (4.20-5.40); WHITE BLOOD COUNT 18.3 x10^3/uL (4.8-10.8)
[2024-10-14 14:16] LABS: BILIRUBIN,URINE MODERATE (NEGATIVE); GLUCOSE, URINE (UA) NEGATIVE (NEGATIVE); KETONES,URINE (UA) >=80 mg/dL (NEGATIVE); LEUKOCYTE ESTERASE, URINE NEGATIVE (NEGATIVE); NITRITE,URINE NEGATIVE (NEGATIVE); OCCULT BLOOD,URINE LARGE (NEGATIVE); PROTEIN,URINE 100 mg/dL (NEGATIVE); UROBILINOGEN,URINE 1 (NORMAL) E.U./dL (NORMAL)
[2024-10-14 14:18] LABS: CLARITY,URINE CLOUDY (CLEAR)
[2024-10-14] MEDS: MORPHINE 2 MG/ML CARPUJECT IVP STA (14:22)
[2024-10-14] MEDS: ONDANSETRON 4 MG/2 ML VIAL IVP STA (14:23)
[2024-10-14 14:36] LABS: BACTERIA,URINE Few /HPF (None Seen); RBC,URINE TNTC /HPF (0-5); SQUAMOUS EPITHELIAL CELL,UR FEW Squamous (<= Few)
[2024-10-14 14:37] LABS: ALBUMIN 4.7 g/dL (3.2-5.5); ALBUMIN/GLOBULIN RATIO 1.3 (1.0-2.2); BILIRUBIN,TOTAL 0.6 mg/dL (0.2-1.0); CALCIUM 9.9 mg/dL (8.5-10.3); CREATININE 0.8 mg/dL (0.6-1.3); POTASSIUM 3.6 mmol/L (3.5-4.5); TOTAL PROTEIN 8.2 g/dL (6.4-8.9)
[2024-10-14] MEDS: cefTRIAXone 1 GM VIAL IVP STA (15:03)
[2024-10-14] MEDS: HYDROmorphone 0.5 MG/0.5 ML SYRINGE IVP STA (15:21)
[2024-10-14] MEDS: SODIUM CHLORIDE 0.9% 1,000 ML IV STA (15:40)
--- NOTE | 2024-10-14 16:45 | HISTORY & PHYSICAL EXAMINATION ---
Chief Complaint Chief Complaint Chief Complaint: Right flank pain, Abdominal pain History of Present Illness History of Present Illness HPI Comment/Other: This is a 34-year-old female with a past medical history of depression, not on any medications, Cholecystectomy, gastric sleeve who presented to the ER for complaint of flank right flank pain and abdominal pain. Patient denies vomiting but confirms nausea. Patient states she has not been eating for a few days. Pain tracks from the right side all the way to the abdomen. Pain is a 7 out of10. Laboratory values indicated leukocytosis of 18,000, Urine indicates negative Leukocyte esterase, 6-10 urine white blood cell counts Patient was in the ED yesterday for the same complaint. At that time abdominal ultrasound and CT abdomen was done. Abdominal ultrasound indicated cholecystectomy, otherwise unremarkable exam CT abdomen pelvis indicated inflammatory changes within the pancreatic head/uncinate process findings with the patient for early pancreatitis no ductal dilatation or fluid collection no hydronephrosis no obstructing renal stones. Patient denies chest pain, palpitations. Patient is full code Meds/Allgy Home Medications Ambulatory Orders Medication Instructions Recorded Confirmed propranolol 10 mg tablet 20 mg PO BID 02/15/22 10/14/24 trazodone 50 mg tablet 50 mg PO PRN PRN Pain 02/15/22 10/14/24 acetaminophen 500 mg capsule 500 mg PO Q4H PRN fever or pain 10/13/24 10/14/24 ondansetron 4 mg disintegrating 4 mg PO Q8H PRN nausea and 10/13/24 10/14/24 tablet vomiting #30 tabs oxycodone-acetaminophen 5 mg-325 1 tab PO TID PRN pain #10 tabs 10/13/24 10/14/24 mg tablet Allergies Allergies Allergy/AdvReac Type Severity Reaction Status Date / Time sumatriptan Allergy Intermediate Unknown Verified 10/14/24 13:28 [facility] Social History Social History Smoking Status: Current every day smoker Do you vape?: No Relationship: Do you feel safe in your home environment?: Yes Suffered physical, verbal, emotional, or financial abuse?: No History of Abuse: No Frequency: Occasional Are you sexually active?: No POLST Patient has POLST: No Review of Systems Status of ROS: 10 or more systems reviewed and unremarkable except as noted in history and below Exam Constitutional normal general appearance, no apparent distress and average body habitus HENMT normocephalic, head/scalp atraumatic and hearing grossly normal bilaterally Eyes PERRL and EOMs intact bilaterally Neck/C-Spine visual inspection normal and trachea midline Chest inspection of chest normal and palpation of chest normal Respiratory breath sounds equal bilaterally and normal respiratory effort Cardiovascular normal heart rate noted and regular rhythm noted Gastrointestinal Right epigastric pain, right flank pain upon palpitation, Decreased bowel sounds Genitourinary Right CVA tenderness Back/Pelvis spine normal to inspection and no thoracic spine tenderness Extremities normal to inspection and normal to palpation Neurology parasitology teacher II-XII intact and no movement abnormality noted Psychiatry mental status grossly normal Skin skin color normal and no rash Conclusion/Plan Problem List (1) Pyelonephritis: Plan: Continue examination patient has right flank pain upon palpitation. In the right epigastric pain. UA is grossly normal With few urine bacteria, No leukocyte esterase. Ultrasound of the abdomen grossly normal. No hydronephrosis, No obstruction. Grossly elevated leukocytosis compared to yesterday. Start empiric Rocephin for pyelonephritis. Pain medication as needed. (2) Pancreatitis: Plan: CT from 10/13/2024 indicated slight edematous pancreatic head. ? Mild pancreatitis. On examination Patient denies left gastric, pain abdominal pain. Patient denies alcohol intake. Obtain Triglyceride level (3) Depression: Plan: Patient has a history of depression, used to be on propranolol and trazodone. Patient, patient to get help of her medications due to weight gain. Patient states that she has been okay with the last 2 years. Continue to monitor mental status And mood (4) Constipation: Plan: Patient states she has not had a bowel movement in 4 days. Patient thinks that because she has been eating much. Monitor bowel habits. Low threshold to start patient on bowel regimen. (5) Diarrhea: Plan: Patient has a history of a gastric sleeve and reports episodic diarrhea. Continue to monitor. Lab Results 10/14/24 14:10 10/14/24 14:10 Diagnostic Imaging Results Diagnostic Imaging Results: positive Final report reviewed
[2024-10-14] MEDS: SODIUM CHLORIDE 0.9% 1,000 ML IV SCH (17:09)
[2024-10-14] MEDS: SODIUM CHLORIDE FLUSH 0.9% 10 ML SYRINGE IVP SCH (17:10)
[2024-10-14] MEDS: HYDROmorphone 0.5 MG/0.5 ML SYRINGE IVP PRN ×2 (17:10→20:37)
[2024-10-14] MEDS: cefTRIAXone 2 GM in SODIUM CHLORIDE 0.9% MINIBAG 100 ML IV STA (18:49)
[2024-10-14] MEDS: HEPARIN 5,000 UNIT/ML VIAL SUBQ SCH (20:36)
[2024-10-15] MEDS ORDERED: ACETAMINOPHEN 650 MG SUPP PR PRN (01:07)
[2024-10-15] MEDS: ACETAMINOPHEN 325 MG TABLET PO PRN (01:20)
[2024-10-15] MEDS: ONDANSETRON 4 MG/2 ML VIAL IVP PRN (04:53)
[2024-10-15] MEDS: SODIUM CHLORIDE FLUSH 0.9% 10 ML SYRINGE IVP PRN (04:54)
[2024-10-15] MEDS ORDERED: iohexoL-300 100 ML VIAL ONE (07:04)
[2024-10-15 07:44] LABS: BASOPHILS % (AUTO) 0.2 %; EOSINOPHILS # (AUTO) 0.2 10^3/uL (0.0-0.7); EOSINOPHILS % (AUTO) 1.4 %; HCT - HEMATOCRIT 32.5 % (37.0-47.0); LYMPHOCYTES # (AUTO) 2.1 10^3/uL (1.5-3.5); LYMPHOCYTES % (AUTO) 16.6 %; MEAN CORPUSCULAR HEMOGLOBIN 28.5 pg (27.0-31.0); MEAN CORPUSCULAR HGB CONC 33.8 g/dL (32.0-36.0); MEAN CORPUSCULAR VOLUME 84.2 fL (81.0-99.0); MEAN PLATELET VOLUME 9.1 fL (7.9-10.8); NEUTROPHILS # (AUTO) 9.4 10^3/uL (1.5-6.6); NEUTROPHILS % (AUTO) 73.1 %; PLT - PLATELET COUNT 227 10^3/uL (130-450); RED BLOOD COUNT 3.86 10^6/uL (4.20-5.40); RED CELL DISTRIBUTION WIDTH 13.2 % (12.0-15.0); WHITE BLOOD COUNT 12.8 x10^3/uL (4.8-10.8)
[2024-10-15 07:56] LABS: CALCIUM 8.3 mg/dL (8.5-10.3); CREATININE 0.7 mg/dL (0.6-1.3); POTASSIUM 3.7 mmol/L (3.5-4.5)
[2024-10-15] MEDS: iohexoL-300 100 ML VIAL IVP ONE (08:11)
[2024-10-15] MEDS: cefTRIAXone 2 GM in SODIUM CHLORIDE 0.9% MINIBAG 100 ML IV SCH (08:50)
--- NOTE | 2024-10-15 09:04 | CT Report ---
PROCEDURE: CT Abdomen/Pelvis W INDICATIONS: R abd pain, appendicitis vs pyleonephritis CONTRAST: OMNI 300 100ML TECHNIQUE: After the administration of intravenous contrast, a CT scan of the abdomen and pelvis was performed. Images were recorded and evaluated at appropriate window settings. Reformats: coronal and sagittal. F or radiation dose reduction, the following was used: automated exposure control, adjustment of mA and /or kV according to patient size. COMPARISON: 10/13/2024 CT abdomen and pelvis without contrast. FINDINGS: Image quality: Diagnostic. Lower chest: Unremarkable. Liver: No solid mass. Gallbladder: Surgically absent Biliary tree: No intrahepatic or extrahepatic dilation, accounting for age. Spleen: No splenomegaly. Pancreas: Question either pancreatitis or a possible infiltrative mass in the uncinate process of the pancreas. There is infiltrative low density in the uncinate process region. Poor visualization of th e superior mesenteric vein. Small subjacent lymph nodes. Mild inflammatory stranding in the subjacent fat. Alternatively, this may represent acute pancreatitis. Adrenals: No adrenal nodule. Kidneys and ureters: No hydronephrosis. No renal cystic lesion which requires follow up. No solid mas s. Stomach, bowel and peritoneum: No gastric or small bowel dilation. No abnormal wall thickening. No pa thologic free fluid. Lymph nodes: No central or retroperitoneal adenopathy. Vessels: No infrarenal aortic aneurysm. Patent portal vein. PELVIS Reproductive organs: Unremarkable. Bladder: No abnormal wall thickening, accounting for underdistention. Pelvic lymph nodes: No pelvic adenopathy by size criteria. Bones: No aggressive osseous abnormality. Other: No significant ventral or inguinal hernia. IMPRESSION: 1. Question pancreatitis or potentially an infiltrative pancreatic adenocarcinoma occurring in a jez g patient. Based on age, pancreatitis is favored. Of note, the superior mesenteric vein is poorly vis ualized and may be involved by the inflammatory process. Comments: Recommend correlation with lipase level. Additionally, recommend short interval pancreas pr otocol MRI. Reviewed by: Angel Rogel MD on 10/15/2024 9:03 AM [facility] Approved by: Angel Rogel MD on 10/15/2024 9:03 AM PST Station ID: [id number]
--- NOTE | 2024-10-15 09:10 | PROVIDER PROGRESS NOTE ---
Subjective Prog Note Date Prog Note Date: 10/15/24 Prog Note Time: 08:59 Subjective Subjective: This is a 34-year-old female with a past medical history of depression, not on any medications, Cholecystectomy, gastric sleeve who presented to the ER for complaint of flank right flank pain and abdominal pain. Patient denies vomiting but confirms nausea. Patient states she has not been eating for a few days. Pain tracks from the right side all the way to the abdomen. Pain is a 7 out of10. Laboratory values indicated leukocytosis of 18,000, Urine indicates negative Leukocyte esterase, 6-10 urine white blood cell counts Patient was in the ED yesterday for the same complaint. At that time abdominal ultrasound and CT abdomen was done. Abdominal ultrasound indicated cholecystectomy, otherwise unremarkable exam CT abdomen pelvis indicated inflammatory changes within the pancreatic head/uncinate process findings with the patient for early pancreatitis no ductal dilatation or fluid collection no hydronephrosis no obstructing renal stones. Patient denies chest pain, palpitations. Patient is full code 10/15/2024: Patient continues to complain about right mid epigastric pain, less on the right flank. Patient denies any food intake.Patient has episodes of nausea without vomiting overnight. Current Medications Current Medications Current Medications: Current Medications Generic Name Dose Route Start Last Admin Trade Name Freq PRN Reason Stop Dose Admin Acetaminophen 650 mg 10/15/24 01:07 Acetaminophen 650 Mg Supp OH Q6HR PRN Pain or Fever > 38C (100.4F) Acetaminophen 650 mg 10/15/24 01:20 10/15/24 04:53 Acetaminophen 325 Mg Tablet PO 650 mg Q4HR PRN Administration Pain or Fever > 38C (100.4F) Heparin Sodium (Porcine) 5,000 unit 10/14/24 21:00 10/15/24 08:50 Heparin 5,000 Unit/Ml Vial SUBQ 5,000 unit BID CAREY Administration Hydromorphone HCl 1 mg 10/14/24 19:31 10/15/24 07:57 Hydromorphone 0.5 Mg/0.5 Ml Syringe IVP 1 mg Q2H PRN Administration Pain 8 to 10 Sodium Chloride 1,000 mls @ 100 mls/hr 10/14/24 16:00 10/15/24 02:25 Normal Saline 0.9% IV 100 mls/hr .Q10H CAREY Administration Ceftriaxone Sodium 2 gm/ 100 mls @ 200 mls/hr 10/15/24 09:00 10/15/24 08:50 Sodium Chloride IV 200 mls/hr DAILY CAREY Administration Ondansetron HCl 4 mg 10/15/24 02:40 10/15/24 04:53 Ondansetron 4 Mg/2 Ml Vial IVP 4 mg Q4HR PRN Administration Nausea / Vomiting Sodium Chloride 10 ml 10/14/24 15:53 10/15/24 04:54 Sodium Chloride Flush 0.9% 10 Ml Syringe IVP 10 ml PRN PRN Administration NEEDED PER PROVIDER ORDERS Sodium Chloride 10 ml 10/14/24 17:00 10/15/24 08:51 Sodium Chloride Flush 0.9% 10 Ml Syringe IVP 10 ml 0100,0900,1700 CAREY Administration Objective Vital Signs/Intake & Output Reviewed Vital Signs: Yes Vital Signs: Vital Signs x48h Temp Pulse Resp BP BP Pulse Ox 10/15/24 07:58 37.2 C 72 20 104/65 96 10/15/24 05:23 36.6 C 10/15/24 05:00 37.3 C 82 16 100/61 100 10/15/24 01:50 36.9 C 10/15/24 01:14 37.6 C Intake & Output: Intake & Output 10/12/24 10/13/24 10/14/24 10/15/24 23:59 23:59 23:59 23:59 Intake Total 1000 / 1000 1407 / 1407 Balance 1000 / 1000 1407 / 1407 Weight (kg) 104 kg Objective General Appearance: positive No acute distress and Alert Eyes Bilateral: positive Normal inspection and PERRL ENT: positive ENT inspection nml and Pharynx nml Neck: positive Nml inspection and Trachea midline Respiratory: positive Chest non-tender and No respiratory distress Cardiovascular: positive Regular rate & rhythm and No murmur Abdomen: positive Other (Right mid epigastric tenderness upon palpitation, right flank pain.) Skin: positive Color nml and No rash Extremities: positive Non-tender and Full ROM Neurologic/Psychiatric: positive Oriented x3 and CN's nml (2-12) Lab Results 10/15/24 07:22 10/15/24 07:22 Other Labs: Lab Results x24hrs 10/15/24 10/14/24 10/14/24 Range/Units 07:22 14:10 14:00 WBC 12.8 H 18.3 H (4.8-10.8) x10^3/uL RBC 3.86 L 5.03 (4.20-5.40) 10^6/uL Hgb 11.0 L 13.9 (12.0-16.0) g/dL Hct 32.5 L 42.3 (37.0-47.0) % MCV 84.2 84.1 (81.0-99.0) fL MCH 28.5 27.6 (27.0-31.0) pg MCHC 33.8 32.9 (32.0-36.0) g/dL RDW 13.2 13.0 (12.0-15.0) % Plt Count 227 330 (130-450) 10^3/uL MPV 9.1 9.1 (7.9-10.8) fL Neut # (Auto) 9.4 H 14.9 H (1.5-6.6) 10^3/uL Lymph # (Auto) 2.1 1.9 (1.5-3.5) 10^3/uL [place] # (Auto) 1.0 1.2 H (0.0-1.0) 10^3/uL Eos # (Auto) 0.2 0.2 (0.0-0.7) 10^3/uL Baso # (Auto) 0.0 0.0 (0.0-0.1) 10^3/uL Absolute Nucleated RBC 0.00 0.00 x10^3/uL Nucleated RBC % 0.0 0.0 /100WBC Sodium 135 135 (135-145) mmol/L Potassium 3.7 3.6 (3.5-4.5) mmol/L Chloride 106 102 (101-111) mmol/L Carbon Dioxide 24 23 (21-32) mmol/L Anion Gap 5.0 L 10.0 (6-13) BUN 9 17 (6-20) mg/dL Creatinine 0.7 0.8 (0.6-1.3) mg/dL Estimated GFR (MDRD) 96 82 L (>89) Glucose 127 H 116 H (74-104) mg/dL Calcium 8.3 L 9.9 (8.5-10.3) mg/dL Total Bilirubin 0.6 (0.2-1.0) mg/dL AST 12 (10-42) IU/L ALT 11 (10-60) IU/L Alkaline Phosphatase 62 (42-121) IU/L Total Protein 8.2 (6.4-8.9) g/dL Albumin 4.7 (3.2-5.5) g/dL Globulin 3.5 (2.1-4.2) g/dL Albumin/Globulin Ratio 1.3 (1.0-2.2) Triglycerides 71 mg/dL Lipase 76 (11-82) U/L Urine Color BROWN Urine Clarity CLOUDY (CLEAR) Urine pH 6.0 (5.0-7.5) PH Ur Specific [place] >=1.030 H (1.002-1.030) Urine Protein 100 H (NEGATIVE) mg/dL Urine Glucose (UA) NEGATIVE (NEGATIVE) mg/dL Urine Ketones >=80 H (NEGATIVE) mg/dL Urine Occult Blood LARGE H (NEGATIVE) Urine Nitrite NEGATIVE (NEGATIVE) Urine Bilirubin MODERATE H (NEGATIVE) Urine Urobilinogen 1 (NORMAL) (NORMAL) E.U./dL Ur Leukocyte Esterase NEGATIVE (NEGATIVE) Urine RBC TNTC H (0-5) /HPF Urine WBC 6-10 H (0-5) /HPF Ur Squamous Epith Cells FEW Squamous (<= Few) Urine Bacteria Few (None Seen) /HPF Ur Microscopic Review INDICATED Urine Culture Comments NOT INDICATED Assessment/Plan Problem List (1) Pyelonephritis: Impression: Repeat CT today indicated no indication of pyelonephritis. However it did show possible pancreatitis. Discontinue Rocephin (2) Pancreatitis: Impression: Repeat CT abdomen pelvis indicated Pancreatitis of the uncinate process of the pancreas With possible involvement of the mesenteric vein. On CT had no indication of pyelonephritis. Continue supportive management, IV fluids, pain control. Leukocytosis has improved to 12.8 from 18.3 (3) Depression: Impression: Patient has a history of depression, used to be on propranolol and trazodone. Per patient stopped her medications due to weight gain. Patient states that she has been okay with the last 2 years. Continue to monitor mental status and mood (4) Constipation: Impression: Patient states she has not had a bowel movement in 4 days. Patient thinks that because she has been eating much. Monitor bowel habits. Low threshold to start patient on bowel regimen. (5) Diarrhea: Impression: Patient has a history of a gastric sleeve and reports episodic diarrhea. Continue to monitor.
[2024-10-15] MEDS: CALAMINE/ZINC OXIDE 177 ML BOTTLE TOP PRN (11:35)
[2024-10-15 13:43] LABS: CHOL/HDL RATIO 3.1 (<4.4); CHOLESTEROL 105 mg/dL; HDL CHOLESTEROL 34 mg/dL; LDL CHOLESTEROL,CALCULATED 52 mg/dL; LDL/HDL RATIO 1.5 (<4.4); TRIGLYCERIDES 94 mg/dL; VLDL CHOLESTEROL 19 mg/dL
--- NOTE | 2024-10-15 15:31 | PHARMACY PROGRESS NOTE ---
Best Possible Medication History Admit Date and Time: 10/14/24 1553 Home Medications Medication Instructions Recorded Confirmed Type propranolol 10 mg tablet 20 mg PO BID PRN anxiety 02/15/22 10/15/24 History trazodone 50 mg tablet 50 mg PO PRN PRN Pain 02/15/22 10/14/24 History acetaminophen 500 mg capsule 500 mg PO Q4H PRN fever or pain 10/13/24 10/14/24 History ondansetron 4 mg disintegrating 4 mg PO Q8H PRN nausea and 10/13/24 10/14/24 Rx tablet vomiting #30 tabs oxycodone-acetaminophen 5 mg-325 1 tab PO TID PRN pain #10 tabs 10/13/24 10/14/24 Rx mg tablet multivitamin (Daily Multi-Vitamin 1 tab PO DAILY 10/15/24 10/15/24 History tablet) Processed by: Pharmacy Medications reviewed in ED?: Yes Medication History completed: No Patient Interview: Completed Secondary Source(s): Pharmacy records and Insurance records [facility] Statement: As the person ultimately responsible for medication therapy, providers are able to order a medication from an existing home medication list in [facility] via the "Reconcile Routine" prior to Confirmation of that medication by wind farm support specialist. Such practice is discouraged except when the physician, in their clinical judgment, deems that a medical need exists for a medication without regard to previous use.
[2024-10-16] MEDS: HYDROmorphone 1 MG/ML CARPUJECT IVP PRN (00:53)
[2024-10-16 06:02] LABS: BASOPHILS % (AUTO) 0.3 %; EOSINOPHILS # (AUTO) 0.2 10^3/uL (0.0-0.7); EOSINOPHILS % (AUTO) 2.5 %; HCT - HEMATOCRIT 33.9 % (37.0-47.0); HGB - HEMOGLOBIN 10.7 g/dL (12.0-16.0); LYMPHOCYTES % (AUTO) 32.9 %; MEAN CORPUSCULAR HEMOGLOBIN 27.2 pg (27.0-31.0); MEAN CORPUSCULAR HGB CONC 31.6 g/dL (32.0-36.0); MEAN CORPUSCULAR VOLUME 86.3 fL (81.0-99.0); MEAN PLATELET VOLUME 9.5 fL (7.9-10.8); MONOCYTES # (AUTO) 0.6 10^3/uL (0.0-1.0); MONOCYTES % (AUTO) 6.6 %; NEUTROPHILS # (AUTO) 5.3 10^3/uL (1.5-6.6); NEUTROPHILS % (AUTO) 57.4 %; PLT - PLATELET COUNT 231 10^3/uL (130-450); RED BLOOD COUNT 3.93 10^6/uL (4.20-5.40); RED CELL DISTRIBUTION WIDTH 13.3 % (12.0-15.0); WHITE BLOOD COUNT 9.2 x10^3/uL (4.8-10.8)
[2024-10-16 06:17] LABS: ALBUMIN 3.4 g/dL (3.2-5.5); ALBUMIN/GLOBULIN RATIO 1.3 (1.0-2.2); BILIRUBIN,TOTAL 0.6 mg/dL (0.2-1.0); CALCIUM 8.7 mg/dL (8.5-10.3); CREATININE 0.6 mg/dL (0.6-1.3); POTASSIUM 3.8 mmol/L (3.5-4.5)
[2024-10-16 08:00] VITALS: O2SAT 92
--- NOTE | 2024-10-16 13:57 | Discharge Summary ---
Discharge Summary Admit Date: 10/14/24 Discharge Date: 10/16/24 Discharging Provider: chaparrita Code Status: Attempt Resuscitation DIAGNOSES Admission Diagnoses: Pancreatitis Abdominal pain, epigastric Discharge Diagnoses with Status of Each Condition: Pancreatitis - Resolved Abdominal pain, epigastric - Resolved HPI History of Present Illness: This is a 34-year-old female with a past medical history of depression, not on any medications, Cholecystectomy, gastric sleeve who presented to the ER for complaint of flank right flank pain and abdominal pain. Patient denies vomiting but confirms nausea. Patient states she has not been eating for a few days. Pain tracks from the right side all the way to the abdomen. Pain is a 7 out of10. Laboratory values indicated leukocytosis of 18,000, Urine indicates negative Leukocyte esterase, 6-10 urine white blood cell counts Patient was in the ED yesterday for the same complaint. At that time abdominal ultrasound and CT abdomen was done. Abdominal ultrasound indicated cholecystectomy, otherwise unremarkable exam CT abdomen pelvis indicated inflammatory changes within the pancreatic head/uncinate process findings with the patient for early pancreatitis no ductal dilatation or fluid collection no hydronephrosis no obstructing renal stones. Patient denies chest pain, palpitations. Patient is full code HOSPITAL COURSE Hospital Course: Patient was admitted for question of pancreatitis versus pyelonephritis. Repeat CT definitely indicated mild pancreatitis of the uncinate process of the pancreas. Patient with started on IV fluids, n.p.o. and pain medications. Lipase was only mildly elevated at 130, triglycerides were normal at levels, cholesterol within normal levels. Patient Denies alcohol use. AST elevated AST ALT very mildly elevated was like secondary to acute mild pancreatitis. Etiology of the pancreatitis uncertain. Patient does take dietary supplements for workout. Patient was able to tolerate breakfast and lunch. Patient was discharged on 10/16/24 in stable condition Patient was encouraged to discontinue her Dietary supplements. Patient was asked to follow-up with her primary care physician within 1 week to 10 days and obtain GI referral. ALLERGIES Allergies Allergy/AdvReac Type Severity Reaction Status Date / Time sumatriptan Allergy Intermediate Unknown Verified 10/14/24 13:28 MEDICATIONS Ambulatory Orders Medication Instructions Recorded Confirmed propranolol 10 mg tablet 20 mg PO BID PRN anxiety 02/15/22 10/15/24 trazodone 50 mg tablet 50 mg PO PRN PRN Pain 02/15/22 10/14/24 acetaminophen 500 mg capsule 500 mg PO Q4H PRN fever or pain 10/13/24 10/14/24 ondansetron 4 mg disintegrating 4 mg PO Q8H PRN nausea and 10/13/24 10/14/24 tablet vomiting #30 tabs oxycodone-acetaminophen 5 mg-325 1 tab PO TID PRN pain #10 tabs 10/13/24 10/14/24 mg tablet multivitamin (Daily Multi-Vitamin 1 tab PO DAILY 10/15/24 10/15/24 tablet) docusate calcium 240 mg capsule 240 mg PO DAILY #30 caps 10/16/24 PHYSICAL EXAM AT DISCHARGE General Appearance: positive No acute distress and Alert Eyes Bilateral: positive Normal inspection and PERRL ENT: positive ENT inspection nml Neck: positive Nml inspection and Trachea midline Respiratory: positive Chest non-tender and No respiratory distress Cardiovascular: positive Regular rate & rhythm and No murmur Abdomen: positive Non-tender and No organomegaly Skin: positive Color nml and No rash Extremities: positive Non-tender and Full ROM Neurologic/Psychiatric: positive Oriented x3 and CN's nml (2-12) LABS 10/16/24 05:21 10/16/24 05:21 DIAGNOSTIC IMAGING Diagnostic Imaging Results: Final report reviewed FOLLOW UP Follow Up: Follow-up with primary care physician within 7 to 10 days for GI referral TIME SPENT Time Spent in Discharge (Minutes): 30 Discharge Plan Discharge Patient Disposition: Home, Self Care Condition: Stable Medically Cleared Date:: 10/16/24 Prescriptions: New docusate calcium 240 mg capsule 240 mg PO DAILY Qty: 30 0RF Rx Instructions: take 1 to 2 caps per day as needed for constipation Continued trazodone 50 MG tablet 50 mg PO PRN PRN (Reason: Pain) propranolol 10 MG tablet 20 mg PO BID PRN (Reason: anxiety) acetaminophen 500 mg capsule 500 mg PO Q4H PRN (Reason: fever or pain) oxycodone-acetaminophen 5-325 mg tablet 1 tab PO TID PRN (Reason: pain) Qty: 10 0RF ondansetron 4 mg tablet,disintegrating 4 mg PO Q8H PRN (Reason: nausea and vomiting) Qty: 30 0RF multivitamin [Daily Multi-Vitamin] Tablet 1 tab PO DAILY Diet: Regular Interventions: Belongings Inventory Last Done: 10/14/24 17:18 Discharge Last Done: 10/16/24 15:02 Discharge Checklist - Nursing Last Done: 10/16/24 15:02 Health Concerns: You were admitted for abdominal pain likely due to acute mild pancreatitis, diagnosed on CT abdomen. Etiology is unclear, since you do not drink alcohol, triglycerides and cholesterol were within normal limits. Lipase, a pancreatic enzyme, was only mildly elevated. You were able to tolerate diet. Please consider discontinuing your diet workout supplements. Please follow up with your primary care physician for a GI referral. Print Language: Maori Patient Instructions: Pancreatitis, Pancreatitis Acute Dc Stand Alone Forms: PCP List Follow-up Care: Marbella Gonzales PA-C [Primary Care Provider] -
[2024-10-16 14:51] VITALS: BP 105/62; TEMP 98.2
== END 2024-10-16 14:55 | disposition home or self-care (01) ==
LOC: ED 13:16 → MS3 13:16
PROVIDERS: ADMIT Internal Medicine; ATTEND Internal Medicine
DX: Z90.49 Acquired absence of other specified parts of digestive tract; K85.90 Acute pancreatitis without necrosis or infection, unspecified; K59.00 Constipation, unspecified; R19.7 Diarrhea, unspecified; F32.A Depression, unspecified